=== PATIENT | male | born 1940 | race Caucasian/White ===

== ENCOUNTER 2018-07-17 14:57 | Emergency (ER) | payer MEDICARE, SELFPAY ==
[2018-07-17 14:59] VITALS: BP 158/88; PULSE 72; RESP 18; TEMP 36.7; O2SAT 97; BMI 36.0
[2018-07-17 15:13] LABS: Basophils % 0.3 % (0.1-2.0); Eosinophils # 0.2 K/mm3 (0.0-0.4); Eosinophils % 1.9 % (0.1-12.0); Hematocrit 38.9 % (42.0-52.0); Hemoglobin 13.1 g/dL (14.1-18.0); Lymphocytes # 2.9 K/mm3 (0.7-4.5); Lymphocytes % 36.4 % (10-50); Mean Corpuscular HGB Conc 33.7 g/dL (31.8-35.4); Mean Corpuscular Hemoglobin 31.9 pg (27.0-31.2); Mean Corpuscular Volume 94.8 fl (80-94); Mean Platelet Volume 8.1 fl (7.4-10.4); Monocytes # 0.6 K/mm3 (0.1-1.0); Monocytes % 7.7 % (1.7-9.3); Neutrophils # 4.2 K/mm3 (1.8-7.8); Neutrophils % 53.7 % (37.0-80.0); Platelet Count 212 K/mm3 (142-424); Red Blood Count 4.11 M/mm3 (4.60-6.20); Red Cell Distribution Width 13.2 % (11.5-17.5); White Blood Count 7.9 K/mm3 (4.8-10.8)
--- NOTE | 2018-07-17 15:13 | HMH.EDGENADL ---
ED Disposition Clinical Impression: Hyperkalemia Disposition: Home, Self-Care Condition on Discharge: Good Referrals: Tunde Mauricio MD [Primary Care Provider] - - Critical Care Critical Care Time: No Attestation: On , the high probability of a clinically significant, sudden or life threatening deterioration of the following system(s) required my full and direct attention, intervention and personal management. The time I documented below is in addition to time spent performing reported procedures but includes the following listed in this critical care notation. Medical Decision Making - Medical Records Medical records reviewed: Yes: I reviewed the patient's medical records. - Stuart Inquiry Pt receiving controlled substance: No Vital Signs: 07/17/18 14:59 07/17/18 15:24 07/17/18 16:21 Temperature 98.0 F Temperature Source Oral Pulse Rate [Right Radial] 72 74 70 Respiratory Rate 18 Blood Pressure [Right Arm] 158/88 H 163/75 H 156/71 H Blood Pressure Mean [Right Arm] 111 104 99 Blood Pressure Source [Right Arm] Automatic Cuff Automatic Cuff Blood Pressure Position [Right Arm] Sitting Sitting 02 Sat by Pulse Oximetry 97 96 96 Oxygen Delivery Method Room Air - Lab Data Lab results reviewed: Yes: I reviewed the patient's lab results. Lab Results 07/17/18 15:00: WBC 7.9, RBC 4.11 L, Hgb 13.1 L, Hct 38.9 L, MCV 94.8 H, MCH 31.9 H, MCHC 33.7, RDW 13.2, Plt Count 212, MPV 8.1, Neut % (Auto) 53.7, Lymph % (Auto) 36.4, [place] % (Auto) 7.7, Eos % (Auto) 1.9, Baso % (Auto) 0.3, Neut # (Auto) 4.2, Lymph # (Auto) 2.9, [place] # (Auto) 0.6, Eos # (Auto) 0.2, Baso # (Auto) 0.0 07/17/18 15:00: Sodium 140, Potassium 5.3 H, Chloride 108 H, Carbon Dioxide 19 L, Anion Gap 18.3 H, BUN 33 H, Creatinine 1.70 H, Estimated Creat Clear 55, Estimated GFR 39 L, Est GFR ( Amer) 47 L, Glucose 140 H, Calcium 9.0, Total Bilirubin 0.6, AST 25, ALT 36, Alkaline Phosphatase 58, Total Protein 7.3, Albumin 4.0, Globulin 3.3 H, Albumin/Globulin Ratio 1.2 07/17/18 15:00: Troponin I < 0.02 Result diagrams: 07/17/18 15:00 07/17/18 15:00 - ECG Data Tracing #1 I reviewed this ECG and interpreted as documented below: Normal Sinus Rhythm: Yes (nsr 72 rbbb, no stemi) Medical Decision Narrative: d/w pt the eventual need for dialysis due to diabetic etiology of his hyperkalemia, pt chooses to follow up with the [facility] Adult HPI - General Chief complaint: Recheck/Abnormal Lab/Rx Stated complaint: abnormal labs Time Seen by Provider: 07/17/18 15:13 Mode of Arrival: Ambulatory Limitations: No Limitations Description of Symptoms (Recalled from ER Triage Doc. by RN): Pt reports that he had blood work done at [facility] today, states he was called by a nurse at the [facility] telling him to come to the ER r/t high potassium. Pt has no complaints, denies pain. Pt reports he was at [facility] today for a regular check up and regular blood work. - History of Present Illness HPI narrative: pt hx elevated potassium today according to the [facility], o/w no pain, not dizzy, not short of breath, no hx dialysis - Related Data Home Medications Medication Instructions Recorded Confirmed Allopurinol [Zyloprim] 100 mg PO DAILY 07/17/18 07/17/18 Aspirin [Aspir 81] 81 mg PO DAILY 07/17/18 07/17/18 Atorvastatin Calcium [Atorvastatin 40 mg PO HS 07/17/18 07/17/18 40mg Tab] Colchicine 0.6 mg PO BID PRN 07/17/18 07/17/18 Lisinopril [Lisinopril 20mg Tab] 20 mg PO DAILY 07/17/18 07/17/18 Metformin HCl 500 mg PO DAILY 07/17/18 07/17/18 Metoprolol Tartrate 1.5 tab PO BID 07/17/18 07/17/18 Pantoprazole Sodium [Protonix 40mg 40 mg PO DAILY 07/17/18 07/17/18 tablet] Allergies Allergy/AdvReac Type Severity Reaction Status Date / Time Sulfa (Sulfonamide Allergy Verified 07/17/18 15:21 Antibiotics) [facility] History - Hepatitis A Screen Drug use history?: No High risk sexual behaviors?: No History of sexually transmitted infection?: No Cu
[2018-07-17 15:24] VITALS: BP 163/75; PULSE 74; O2SAT 96
[2018-07-17 15:33] LABS: Alanine Aminotransferase 36 U/L (12-78); Albumin/Globulin Ratio 1.2 (1.1-1.8); Alkaline Phosphatase 58 U/L (46-116); Anion Gap 18.3 mEq/L (5-15); Aspartate Amino Transferase 25 U/L (15-37); Bilirubin,Total 0.6 mg/dL (0.2-1.0); Blood Urea Nitrogen 33 mg/dL (7-18); Carbon Dioxide 19 mmol/L (21.0-32.0); Chloride 108 mmol/L (98-107); Creatinine Clearance Estimated 55 mL/min (50-200); Estimated Glomerular Filt Rate 39 ml/min (>60); GFR (African American) 47 ML/MIN (>60); Globulin 3.3 gm/dl (1.3-3.2); Glucose 140 mg/dL (74-106); Potassium 5.3 mmoL/L (3.5-5.1); Sodium 140 mmol/L (136-145); Total Protein,Serum 7.3 gm/dL (6.4-8.2)
[2018-07-17 15:34] LABS: Troponin I < 0.02 ng/ml (0.00-0.06)
--- NOTE | 2018-07-17 16:20 | PC.NURSE ---
notified BROOKE PALMER all results are back on pt
[2018-07-17 16:21] VITALS: BP 156/71; PULSE 70; O2SAT 96
[2018-07-17 16:51] VITALS: BP 176/76; PULSE 71; RESP 18; TEMP 36.7; O2SAT 97
== END 2018-07-17 16:53 | disposition home or self-care (01) ==
PROVIDERS: Emergency Provider Emergency Medicine Emergency Medical Services; PCP Internal Medicine Adolescent Medicine
DX: E87.5 Hyperkalemia (principal); I10 Essential (primary) hypertension; E11.65 Type 2 diabetes mellitus with hyperglycemia; Z79.84 Long term (current) use of oral hypoglycemic drugs; Z88.2 Allergy status to sulfonamides
CPT/HCPCS: 80053; 84484; 85025; 93005; 99283

== ENCOUNTER → 2018-11-08 15:39 | Outpatient (CLI) | payer MEDICARE, SELFPAY ==
[2018-11-08 18:02] LABS: Anion Gap 18.5 mEq/L (5-15); Blood Urea Nitrogen 44 mg/dL (7-18); Calcium 8.8 mg/dL (8.5-10.1); Carbon Dioxide 20 mmol/L (21.0-32.0); Chloride 106 mmol/L (98-107); Creatinine,Serum 2.06 mg/dL (0.70-1.30); Estimated Glomerular Filt Rate 31 ml/min (>60); GFR (African American) 38 ML/MIN (>60); Glucose 195 mg/dL (74-106); Potassium 5.5 mmoL/L (3.5-5.1); Sodium 139 mmol/L (136-145)
== END ==
PROVIDERS: Visit Provider Internal Medicine Adolescent Medicine
DX: Z86.39 Personal history of other endocrine, nutritional and metabolic disease (principal)
CPT/HCPCS: 36415; 80048

== ENCOUNTER 2021-08-08 19:32 | Emergency (ER) | payer MEDICARE, OTHER, SELFPAY ==
[2021-08-08 19:33] VITALS: BP 182/78; PULSE 88; RESP 18; TEMP 37.7; O2SAT 97; BMI 31.5
--- NOTE | 2021-08-08 19:54 | HMH.EDGENADL ---
ED Disposition Clinical Impression: Cellulitis Qualifiers: Site of cellulitis: extremity Site of cellulitis of extremity: lower extremity Laterality: left Qualified Code(s): L03.116 - Cellulitis of left lower limb Disposition: Home, Self-Care Condition on Discharge: Fair Instructions: Cellulitis Additional Instructions: You have been given antibiotics for soft tissue infection. Please continue to keep a very close eye on your symptoms. Should your condition worsen, please return promptly to the nearest emergency department for reassessment. Take your antibiotics as prescribed. If your symptoms are not improving or the redness is progressing within 48 hours, please also return for reassessment. Follow-up with your surgeon as scheduled. Referrals: Pita Jin MD [Primary Care Provider] - - Critical Care Critical Care Time: No Attestation: On , the high probability of a clinically significant, sudden or life threatening deterioration of the following system(s) required my full and direct attention, intervention and personal management. The time I documented below is in addition to time spent performing reported procedures but includes the following listed in this critical care notation. Medical Decision Making - Medical Records Medical records reviewed: Yes: I reviewed the patient's medical records. - Stuart Inquiry Pt receiving controlled substance: No Vital Signs: 08/08/21 19:33 08/08/21 20:00 08/08/21 20:30 Temperature 99.8 F H Temperature Source Oral Pulse Rate 87 79 Pulse Rate [Apical] 88 Respiratory Rate 18 Blood Pressure 183/77 H 146/62 H Blood Pressure [Right Arm] 182/78 H Blood Pressure Mean 112 111 Blood Pressure Mean [Right Arm] 112 Blood Pressure Source [Right Arm] Automatic Cuff Blood Pressure Position [Right Arm] Sitting 02 Sat by Pulse Oximetry 97 Oxygen Delivery Method Room Air 08/08/21 21:00 Temperature Temperature Source Pulse Rate 79 Pulse Rate [Apical] Respiratory Rate Blood Pressure 144/61 H Blood Pressure [Right Arm] Blood Pressure Mean 112 Blood Pressure Mean [Right Arm] Blood Pressure Source [Right Arm] Blood Pressure Position [Right Arm] 02 Sat by Pulse Oximetry Oxygen Delivery Method - Lab Data Lab results reviewed: Yes: I reviewed the patient's lab results. Lab Results 08/08/21 20:04: VBG pH 7.37, VBG pCO2 36.8, VBG pO2 37.4, VBG HCO3 20.8 L, VBG Total CO2 21.9 L, VBG O2 Saturation 73.5 H, VBG Base Excess -4.5 L 08/08/21 20:18: WBC 7.8, RBC 3.34 L, Hgb 11.2 L, Hct 34.6 L, MCV 103.6 H, MCH 33.6 H, MCHC 32.4, RDW 14.0, Plt Count 230, MPV 9.0, Neut % (Auto) 67.5, Lymph % (Auto) 21.2, [place] % (Auto) 9.4 H, Eos % (Auto) 1.3, Baso % (Auto) 0.6, Neut # (Auto) 5.2, Lymph # (Auto) 1.7, [place] # (Auto) 0.7, Eos # (Auto) 0.1, Baso # (Auto) 0.1 08/08/21 20:18: Magnesium 1.6, Troponin I < 0.01, C-Reactive Protein 153.6 H 08/08/21 20:18: Lactate 1.2 08/08/21 20:18: Procalcitonin 0.136 08/08/21 20:18: Sodium 137, Potassium 4.8, Chloride 109 H, Carbon Dioxide 21 L, Anion Gap 11.8, BUN 22 H, Creatinine 1.30 H, Estimated Creat Clear 62, Estimated GFR 53 L, Est GFR ( Amer) 64, Glucose 140 H, Calcium 8.5 08/08/21 23:09: Troponin I < 0.01 Result diagrams: 08/08/21 20:18 08/08/21 20:18 Orders (Tests/Meds): ED MEDICATIONS Generic Name Dose Route Start Last Admin Trade Name Freq PRN Reason Stop Dose Admin Lactated Ringer's 1,000 mls @ 999 mls/hr 08/08/21 20:30 08/08/21 20:35 Lactated Ringer's 1000 Ml Bag IV 08/08/21 21:30 999 mls/hr .Q1H1M ALBERTO Administration Discontinued Medications Generic Name Dose Route Start Last Admin Trade Name Freq PRN Reason Stop Dose Admin Acetaminophen 1,000 mg 08/08/21 20:38 08/08/21 20:39 Acetaminophen 500mg Tab PO 08/08/21 20:39 1,000 mg ONCE ONE Administration Iopamidol 75 ml 08/08/21 21:49 08/08/21 21:50 Iopamidol-370 (76%);100ml Bottle IV 08/08/21 21:50 75 ml ONCE ON
[2021-08-08 20:00] VITALS: BP 183/77; PULSE 87
--- NOTE | 2021-08-08 20:06 | CT_ITS ---
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 ; Additional info: Concern for infection at incision site TECHNIQUE: Imaging protocol: CT of the Left lower extremity with intravenous contrast was performed. Exam focused on the lower leg. Radiation optimization: All CT scans at this facility use at least one of these dose optimization techniques: automated exposure control; mA and/or kV adjustment per patient size (includes targeted exams where dose is matched to clinical indication); or iterative reconstruction. Contrast material: ISOVUE; Contrast volume: 75 ml; Contrast route: IV; COMPARISON: CR [id number] VIEWS 11/19/2014 12:57 PM FINDINGS: Bones/joints: Moderate osteoarthritis. Soft tissues: Edematous infiltration subcutaneous fat lower leg progressing distally. This may be cellulitis or passive edema. No soft tissue gas or well-defined abscess. IMPRESSION: Edematous infiltration subcutaneous fat lower leg progressing distally. This may be cellulitis or passive edema. No soft tissue gas or well-defined abscess.
[2021-08-08 20:30] VITALS: BP 146/62; PULSE 79
[2021-08-08 20:32] LABS: VBG Base Excess -4.5 mmol/L (-2.4-2.3); VBG HCO3 20.8 mmol/L (23-30); VBG Oxygen Saturation 73.5 % (50-70); VBG PCO2 36.8 mmol/L (35-51); VBG PH 7.37 mmol/L (7.31-7.41); VBG PO2 37.4 mmol/L (28-40); VBG Total CO2 21.9 mmol/L (23-27)
[2021-08-08 20:35] LABS: Lactic Acid 1.2 mmol/L (0.7-2.1); Magnesium 1.6 mg/dl (1.6-2.3)
[2021-08-08 20:36] LABS: Basophils # 0.1 K/mm3 (0-0.2); Basophils % 0.6 % (0.1-2.0); Eosinophils # 0.1 K/mm3 (0.0-0.4); Eosinophils % 1.3 % (0.1-12.0); Hematocrit 34.6 % (42.0-52.0); Hemoglobin 11.2 g/dL (14.1-18.0); Lymphocytes # 1.7 K/mm3 (0.7-4.5); Lymphocytes % 21.2 % (10-50); Mean Corpuscular HGB Conc 32.4 g/dL (31.8-35.4); Mean Corpuscular Hemoglobin 33.6 pg (27.0-31.2); Mean Corpuscular Volume 103.6 fl (80-94); Monocytes # 0.7 K/mm3 (0.1-1.0); Monocytes % 9.4 % (1.7-9.3); Neutrophils # 5.2 K/mm3 (1.8-7.8); Neutrophils % 67.5 % (37.0-80.0); Platelet Count 230 K/mm3 (142-424); Red Blood Count 3.34 M/mm3 (4.60-6.20); White Blood Count 7.8 K/mm3 (4.8-10.8)
[2021-08-08 20:40] LABS: C-Reactive Protein 153.6 mg/L (0-4)
[2021-08-08 20:52] LABS: Troponin I < 0.01 ng/ml (0.00-0.034)
[2021-08-08 21:00] VITALS: BP 144/61; PULSE 79
[2021-08-08 21:03] LABS: Procalcitonin 0.136 ng/mL (0.0-2.0)
[2021-08-08 21:11] LABS: Anion Gap 11.8 mEq/L (5-15); Blood Urea Nitrogen 22 mg/dl (9-20); Calcium 8.5 mg/dl (8.4-10.2); Carbon Dioxide 21 mmol/L (22.0-30.0); Chloride 109 mmol/L (98-107); Creatinine Clearance Estimated 62 mL/min (50-200); Estimated Glomerular Filt Rate 53 ml/min (>60); GFR (African American) 64 ML/MIN (>60); Glucose 140 mg/dl (74-100); Potassium 4.8 mmoL/L (3.5-5.1); Sodium 137 mmol/L (136-145)
[2021-08-08 23:54] LABS: Troponin I < 0.01 ng/ml (0.00-0.034)
[2021-08-09 00:22] VITALS: BP 168/78; PULSE 72; RESP 19; TEMP 36.7; O2SAT 96
== END 2021-08-09 00:37 | disposition home or self-care (01) ==
PROVIDERS: Emergency Provider Emergency Medicine; PCP Internal Medicine
DX: L03.116 Cellulitis of left lower limb (principal); E11.9 Type 2 diabetes mellitus without complications; Z79.84 Long term (current) use of oral hypoglycemic drugs
CPT/HCPCS: 36415; 73701; 80048; 82803; 83605; 83735; 84145; 84484; 85025; 86140; 87040; 96360; 99284; Q9967